=== PATIENT | female | born 1990 | race Caucasian/White ===

== ENCOUNTER 2022-09-15 11:33 | Day surgery (SDC) | payer BC ==
[2022-09-15] MEDS ORDERED: Ondansetron PF 4 MG/2 ML Vial IVP PRN (12:49)
[2022-09-15] MEDS ORDERED: hydrALAZINE 20 MG/ML VIAL SLOW IVP PRN (12:49)
[2022-09-15] MEDS ORDERED: Promethazine HCl 25 MG/ML VIAL IM PRN (12:49)
[2022-09-15] MEDS ORDERED: Terbutaline Sulfate 1 MG/ML VIAL ONE (12:52)
[2022-09-15 13:00] LABS: Hemoglobin 12.9 g/dL (12.0-15.5); Mean Corpuscular HGB CONC 33.4 g/dL (32.0-36.0); Mean Corpuscular Hemoglobin 29.6 pg (27.0-33.0); Mean Corpuscular Volume 88.5 fl (81.6-98.3); Mean Platelet Volume 11.5 fl (7.4-10.4); Platelet Count 211 10x3/uL (150-450); RBC Distribution Width 14.9 % (11.5-14.5); Red Blood Cell (RBC) Count 4.36 10x6/uL (3.90-5.03); White Blood Cell (WBC) Count 10.2 10x3/uL (3.5-10.5)
[2022-09-15] MEDS ORDERED: Terbutaline Sulfate 1 MG/ML VIAL SC SCH (13:00)
[2022-09-15] MEDS ORDERED: Mineral Oil ENEMA PR SCH (13:00)
[2022-09-15] MEDS ORDERED: NS w/ Oxytocin 30 units 500 ML IV SCH (13:00)
[2022-09-15] MEDS ORDERED: Lactated Ringer's 1,000 ML IV SCH (13:00)
[2022-09-15 14:08] LABS: Syphilis Antibody Nonreactive (Nonreactive); Syphilis Antibody Index 0.04 S/CO (<1.00 Non-Reactive)
[2022-09-15 14:09] LABS: HBSAg Index 0.15 S/CO (0-0.99); Hep B Surf Ag - L&D Non-Reactive S/CO (NonReactive)
== END 2022-09-15 15:00 | disposition home or self-care (01) ==
LOC: CSHLD/OP 11:33
PROVIDERS: ATTEND Student in an Organized Health Care Education/Training Program
DX: O32.1XX0 Maternal care for breech presentation, not applicable or unspecified (principal); Z79.899 Other long term (current) drug therapy; Z88.0 Allergy status to penicillin; Z3A.37 37 weeks gestation of pregnancy
CPT/HCPCS: 36415; 59412; 85027; 86780; 86850; 86900; 86901; 87340; 96360; J3105

== ENCOUNTER 2022-09-19 11:24 | Day surgery (SDC) | payer BC ==
[2022-09-19] MEDS ORDERED: hydrALAZINE 20 MG/ML VIAL SLOW IVP PRN (12:28)
== END 2022-09-19 15:25 | disposition home or self-care (01) ==
LOC: CSHLD/OP 11:24
PROVIDERS: ATTEND Student in an Organized Health Care Education/Training Program
DX: O36.8130 Decreased fetal movements, third trimester, not applicable or unspecified (principal); Z87.59 Personal history of other complications of pregnancy, childbirth and the puerperium; Z79.899 Other long term (current) drug therapy; Z88.0 Allergy status to penicillin; Z3A.38 38 weeks gestation of pregnancy
CPT/HCPCS: 76819; 99282

== ENCOUNTER 2022-09-30 00:16 | Inpatient (IN) | payer BC ==
[2022-10-02] MEDS ORDERED: Tranexamic Acid 1,000 MG/10 ML VIAL IVP PRN (07:31)
[2022-10-02] MEDS ORDERED: Ibuprofen 800 MG TAB PO PRN (07:31)
[2022-10-02] MEDS ORDERED: Methylergonovine 0.2 MG/ML VIAL IM PRN (07:31)
[2022-10-02] MEDS ORDERED: Misoprostol 200 MCG TAB PR PRN (07:31)
[2022-10-02] MEDS ORDERED: Acetaminophen 500 MG TAB PO PRN (07:31)
[2022-10-02] MEDS ORDERED: NS w/ Oxytocin 30 units 500 ML IV SCH ×2 (07:31)
[2022-10-02] MEDS ORDERED: Diphenoxylate HCl/Atropine Tablet PO PRN (07:31)
[2022-10-02] MEDS ORDERED: Ondansetron PF 4 MG/2 ML Vial IVP PRN ×3 (07:31→17:52)
[2022-10-02] MEDS ORDERED: Carboprost 250 MCG/ML AMP IM PRN (07:31)
[2022-10-02] MEDS ORDERED: HYDROcodone/Acetaminophen 5/325 mg Tablet PO PRN (07:31)
[2022-10-02] MEDS ORDERED: Lidocaine 1% (PF) 30 ML VIAL SC PRN (07:31)
[2022-10-02] MEDS ORDERED: Promethazine HCl 25 MG/ML VIAL IM PRN ×2 (07:31→09:35)
[2022-10-02] MEDS ORDERED: hydrALAZINE 20 MG/ML VIAL SLOW IVP PRN ×2 (07:31→17:52)
[2022-10-02] MEDS ORDERED: fentaNYL 50 mcg/mL 1 mL Vial SLOW IVP PRN (07:42)
[2022-10-02 08:19] VITALS: BMI 40.3
[2022-10-02 08:44] LABS: Hemoglobin 12.5 g/dL (12.0-15.5); Mean Corpuscular HGB CONC 33.3 g/dL (32.0-36.0); Mean Corpuscular Hemoglobin 29.2 pg (27.0-33.0); Mean Corpuscular Volume 87.6 fl (81.6-98.3); Mean Platelet Volume 11.3 fl (7.4-10.4); Platelet Count 199 10x3/uL (150-450); RBC Distribution Width 14.3 % (11.5-14.5); Red Blood Cell (RBC) Count 4.28 10x6/uL (3.90-5.03); White Blood Cell (WBC) Count 9.6 10x3/uL (3.5-10.5)
[2022-10-02 09:08] LABS: HBSAg Index 0.12 S/CO (0-0.99); Hep B Surf Ag - L&D Non-Reactive S/CO (NonReactive)
[2022-10-02 09:09] LABS: Syphilis Antibody Nonreactive (Nonreactive); Syphilis Antibody Index 0.04 S/CO (<1.00 Non-Reactive)
[2022-10-02] MEDS ORDERED: Naloxone HCl 0.4 mg/ml Vial IVP PRN ×2 (09:35)
[2022-10-02] MEDS ORDERED: Acetaminophen 325 MG TAB PO PRN (09:35)
[2022-10-02] MEDS ORDERED: Moisturizing Cream (Eucerin) 113 GM JAR TOP PRN (09:35)
[2022-10-02] MEDS ORDERED: Lactated Ringer's 500 ML IV PRN (09:35)
[2022-10-02] MEDS ORDERED: diphenhydrAMINE 50 MG/ML VIAL IVP PRN (09:35)
[2022-10-02] MEDS ORDERED: ePHEDrine Sulfate 50 MG/10 ML VIAL SLOW IVP PRN (09:35)
[2022-10-02] MEDS ORDERED: Fentanyl 2 mcg/Bupivacaine 0.1% Cassette 100 ML EPIDURAL SCH (09:45)
[2022-10-02] MEDS ORDERED: Communication Order-Pharmacy FS SCH (09:45)
[2022-10-02] MEDS ORDERED: Fentanyl 2 mcg/Bup 0.1% Cadd 100 ML ONE (10:37)
[2022-10-02] MEDS ORDERED: Methylergonovine 0.2 MG/ML VIAL ONE (14:04)
[2022-10-02] MEDS ORDERED: Carboprost 250 MCG/ML AMP ONE (14:04)
[2022-10-02] MEDS: Lactated Ringer's 1,000 ML IV SCH (17:36)
[2022-10-02] MEDS ORDERED: Preparation H Ointment 28 GM TUBE PR PRN (17:52)
[2022-10-02] MEDS ORDERED: Benzocaine-Menthol 82.5 ML CAN TOP PRN (17:52)
[2022-10-02] MEDS ORDERED: Bisacodyl 10 MG SUPP PR PRN (17:52)
[2022-10-02] MEDS ORDERED: Milk Of Magnesia 30 ML UDCUP PO PRN (17:52)
[2022-10-02] MEDS ORDERED: Boostrix 0.5 ML (Tdap) VIAL (>/=7 yrs of age) IM ONE (17:52)
[2022-10-02] MEDS ORDERED: diphenhydrAMINE 25 MG CAP PO PRN (17:52)
[2022-10-02] MEDS ORDERED: Ferrous Sulfate 325 MG TAB PO SCH (18:15)
[2022-10-02] MEDS: HYDROcodone/Acetaminophen 5/325 mg Tablet PO PRN (18:28)
[2022-10-02] MEDS ORDERED: Bupivacaine/Epinephrine 0.25% 30 ML VIAL ONE (19:44)
[2022-10-02] MEDS: Ibuprofen 800 MG TAB PO SCH (21:11)
[2022-10-02] MEDS: Docusate 100 MG CAP PO SCH (21:11)
[2022-10-03] MEDS: HYDROcodone/Acetaminophen 5/325 mg Tablet PO PRN (00:55)
[2022-10-03] MEDS: Ibuprofen 800 MG TAB PO SCH ×2 (05:22→13:44)
[2022-10-03] MEDS ORDERED: Ferrous Sulfate 325 MG TAB PO SCH (08:00)
[2022-10-03] MEDS: Docusate 100 MG CAP PO SCH (08:48)
[2022-10-03] MEDS ORDERED: Prenatal Vitamin 1 TAB PO SCH (09:00)
[2022-10-03 09:35] VITALS: TEMP 98.4
[2022-10-03 14:38] VITALS: BP 115/71
== END 2022-10-03 17:30 | disposition home or self-care (01) | DRG 807 ==
LOC: CSHLD 10-02 06:19 → CSHPP 10-02 17:09
PROVIDERS: ADMIT Student in an Organized Health Care Education/Training Program; ATTEND Student in an Organized Health Care Education/Training Program
PROC: 10E0XZZ Delivery of Products of Conception, External Approach (ICD-10-PCS; principal; 2022-10-02)
PROC: 0KQM0ZZ Repair Perineum Muscle, Open Approach (ICD-10-PCS; 2022-10-02)
DX: O99.344 Other mental disorders complicating childbirth (principal); Z37.0 Single live birth; O70.0 First degree perineal laceration during delivery; Z3A.40 40 weeks gestation of pregnancy; F41.9 Anxiety disorder, unspecified; Z88.0 Allergy status to penicillin; Z88.1 Allergy status to other antibiotic agents; Z88.2 Allergy status to sulfonamides
CPT/HCPCS: 51702; 85027; 86780; 86850; 86900; 86901; 87340; J2590